=== PATIENT | male | born 1975 | race Caucasian/White ===

== ENCOUNTER 2018-05-25 13:51 | Emergency (ER) | payer OTHER, BC ==
[2018-05-25 14:49] VITALS: RESP 18; TEMP 98.3
--- NOTE | 2018-05-25 15:27 | XR ---
EXAMINATION TYPE: XR foot complete LT DATE OF EXAM: 05/25/2018 CLINICAL HISTORY: pain TECHNIQUE: Frontal, lateral and oblique images of the left foot are obtained. COMPARISON: None. FINDINGS: There is no acute fracture/dislocation evident. The joint spaces appear within normal sorto its. The overlying soft tissue appears unremarkable. IMPRESSION: There is no acute fracture or dislocation. ICD 10 NO FRACTURE, INITIAL EVALUATION
[2018-05-25] MEDS ORDERED: KETOROLAC 30 MG/ML 1 ML VIAL IM STA (16:07)
--- NOTE | 2018-05-25 16:21 | ED ---
General Adult HPI - General Chief complaint: Extremity Injury, Lower Stated complaint: foot injury Time Seen by Provider: 05/25/18 15:48 Source: patient Mode of arrival: ambulatory Limitations: no limitations - History of Present Illness Initial comments: 43-year-old male with past medical history of hypertension presenting today for chief complaint of right foot pain. Patient states that just prior to presentation he was working out in his home gym, when he dropped a 25 pound dumbbell on his right foot, near the base of the left first digit. Patient noted immediate bruising and pain with ambulation. Patient is concerned a fracture and presented for evaluation. Patient denies numbness, tingling, loss sensation, coolness of extremity, pain out of proportion, paresthesias or pallor. Patient is able to wiggle all 5 digits however he admits to pain. Injury did cause small amount of blood drawn from superficial abrasion. Patient tetanus up-to-date Patient denies injury to any other extremity, fall or head injury. Upon arrival patient is well-appearing. Vital signs within acceptable limits. - Related Data Allergies Allergy/AdvReac Type Severity Reaction Status Date / Time No Known Allergies Allergy Verified 05/25/18 14:45 Review of Systems ROS Statement: Those systems with pertinent positive or pertinent negative responses have been documented in the HPI. ROS Other: All systems not noted in ROS Statement are negative. Constitutional: Denies: fever, chills ENT: Denies: ear pain, throat pain Respiratory: Denies: cough, dyspnea, wheezes, hemoptysis, stridor Cardiovascular: Denies: chest pain, palpitations Endocrine: Denies: fatigue Gastrointestinal: Denies: abdominal pain, nausea, vomiting, diarrhea, constipation, hematemesis, melena Genitourinary: Denies: urgency, dysuria, frequency, hematuria Musculoskeletal: Reports: joint swelling, arthralgia. Denies: back pain Skin: Reports: change in color (ecchymosis near 1st MTP of right foot). Denies : rash, lesions Neurological: Denies: headache, weakness, numbness, paresthesias, confusion Past Medical History Past Medical History: Hypertension History of Any Multi-Drug Resistant Organisms: None Reported Past Surgical History: Hernia Repair, Orthopedic Surgery Additional Past Surgical History / Comment(s): R leg, R shoulder Past Psychological History: No Psychological Hx Reported Smoking Status: Current every day smoker Past Alcohol Use History: Occasional Past Drug Use History: None Reported General Exam - General Exam Comments Initial Comments: General: The patient is awake and alert, in no distress, and does not appear acutely ill. Eye: Pupils are equal, round and reactive to light, extra-ocular movements are intact. No nystagmus. There is normal conjunctiva bilaterally. No signs of icterus. Ears, nose, mouth and throat: There are moist mucous membranes and no oral lesions. Neck: The neck is supple, there is no tenderness or JVD. Cardiovascular: There is a regular rate and rhythm. No murmur, rub or gallop is appreciated. Respiratory: Lungs are clear to auscultation, respirations are non-labored, breath sounds are equal. No wheezes, stridor, rales, or rhonchi. Musculoskeletal: Pt able to wiggle all 5 digits of the right foot, admits to pain in the great toe and second digit with this movement, patient is tender to palpation over the base of the first and second MTP there is significant ecchymosis at this area Strength 5/5. Sensation intact of the foot plantar and dorsal aspect and in web space of 1/2nd digit. DP pulses equal bilaterally 2+. Foot soft and compressible, no pallor. Warm to palpation. No lacerations noted Neurological: A&O x 3. CN II-XII intact, There are no obvious motor or sensory deficits. Coordination appears grossly intact. Speech is normal. Skin: Skin is warm and dry and no rashes or lesions are noted. Psychiatric: Cooperative, appropriate mood & affect, normal judgment. Limitations: no limitations Course Vital Signs 05/25/18 14:46 Temperature 98.3 F Pulse Rate 70 Respiratory 18 Rate Blood Pressure 142/79 O2 Sat by Pulse 99 Oximetry Medical Decision Making - Medical Decision Making X-ray negative for acute fracture at this time. Patient has foot contusion. There is pain at the base of the first and second MTP joints, patient will be placed in a posterior mold splint and given nonweightbearing instructions and given a prescription for Librium crutches. Patient is to follow-up with orthopedic surgery in the next 2-3 days. Patient is agreeable with plan. Patient states he is ready for discharge. Patient given 30 mg IM Toradol for pain mgmt in ER. Parameters discussed at length the patient verbalizes understanding. Case discussed with Dr. Montez who agreed impression and plan. Patient discharged in stable condition. Disposition Clinical Impression: Foot contusion, Right foot injury Disposition: HOME SELF-CARE Condition: Good Instructions: Foot Contusion (ED) Additional Instructions: Please use medication as discussed. Please follow-up with orthopedic surgery in next 1-2 days. Please do not weight bear until orthopedic clearance. Please return to emergency room if the symptoms increase or worsen or for any other concerns. Is patient prescribed a controlled substance at d/c from ED?: No Referrals: Christine Dee MD [Primary Care Provider] - 1-2 days Severo Oates DO [Doctor of Osteopathic Medicine] - 1-2 days Time of Disposition: 16:21
[2018-05-25 16:37] VITALS: BP 138/78; PULSE 89
--- NOTE | 2018-05-26 07:45 | CDI ---
Documentation Clarification OP Dear Lilian Ferrera Please provide foot contusion specific laterality(in ED notes-RT foot & in nursing note-LT foot injury, splint also applied to LT foot) Thank you, Edward [employer] In[employer] If you have any questions, please contact Instrumental Musician at [phone] WOLF RIVAS --NOT CORRECT PHYSICIAN. MTDD
== END 2018-05-25 16:36 | disposition home or self-care (01) ==
LOC: EC 13:51
DX: S90.122A Contusion of left lesser toe(s) without damage to nail, initial encounter (principal); S90.112A Contusion of left great toe without damage to nail, initial encounter; S90.111A Contusion of right great toe without damage to nail, initial encounter; S90.121A Contusion of right lesser toe(s) without damage to nail, initial encounter; F17.200 Nicotine dependence, unspecified, uncomplicated; Z98.890 Other specified postprocedural states; W20.8XXA Other cause of strike by thrown, projected or falling object, initial encounter; Y93.B3 Activity, free weights; Y92.008 Other place in unspecified non-institutional (private) residence as the place of occurrence of the external cause
CPT/HCPCS: 73630; 99283; 29515; 96372; J1885